=== PATIENT | female | born 1990 | race African-American/Black ===

== ENCOUNTER 2016-09-03 02:03 | Emergency (ER) | payer SELFPAY ==
[~2016-09-03] VITALS: Ht 170.2 cm; Wt 86.0 kg
[~2016-09-03 02:03] MED LIST: MACR100C PO; ZOFR4TAB3 PO
[2016-09-03 02:41] VITALS: BP 127/62; PULSE 82; RESP 16; TEMP 97.6; O2SAT 100
== END 2016-09-03 04:08 | disposition left against medical advice (07) ==
LOC: NED 02:03
DX: R68.89 Other general symptoms and signs (principal)
CPT/HCPCS: 99281

== ENCOUNTER 2016-09-21 10:42 | Emergency (ER) | payer SELFPAY ==
[~2016-09-21] VITALS: Ht 170.2 cm; Wt 82.0 kg
[2016-09-21 10:44] VITALS: BP 122/61; PULSE 77; RESP 14; TEMP 98.1; O2SAT 100
--- NOTE | 2016-09-21 11:03 | PD ---
HPI . left eye crusting, redness, and swelling this morning Chief Complaint: Eye Problems/Injury Time Seen by Provider: 11:03 Travel History International Travel<30 days: No Contact w/Intl Traveler<30days: No Traveled to known affect area: No History of Present Illness HPI 26-year-old female with no past medical history here with complaints of left eye redness, swelling and crusting early this morning. Patient said she woke up and had to remove large amounts of crust and drainage from her left eye. She admits to some discomfort and says that she thinks something may be in there , but is uncertain. 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 She denies any loss of vision today, but suffers from vision impairment and is not wearing any glasses or corrective lenses at this point. PFSH Past Medical History Diminished Hearing: No Headaches: Yes Hypertension: Yes (DURING ) Immunizations Current: Yes ?: Not LMP: 09/11/16 Menopausal: No : 2 Para: 1 : 1 Past Surgical History Section: Yes Gynecologic Surgery: Yes () Social History Alcohol Use: No (DENIES) Tobacco Use: No Substance Use: No Allergies-Medications (Allergen,Severity, Reaction): Coded Allergies: No Known Allergies (Verified , 09/21/16) Reported Meds & Prescriptions Reported Meds & Active Scripts Active Erythromycin Opth Oint 5 Mg/Gm Oint 1 Applic LEFT EYE BID 5 Days Review of Systems General / Constitutional: No: Fever Eyes: Positive: Drainage, Redness, Foreign Body Sensation, Tearing, No: Visual changes HENT: No: Headaches Cardiovascular: No: Chest Pain or Discomfort Respiratory: No: Shortness of Breath Gastrointestinal: No: Abdominal Pain Genitourinary: No: Dysuria Musculoskeletal: No: Pain Skin: No Rash Neurologic: No: Weakness Psychiatric: No: Depression Endocrine: No: Polydipsia Hematologic/Lymphatic: No: Easy Bruising Physical Exam Narrative GENERAL: AAO x 3, no acute distress, Well-nourished, well-developed patient. SKIN: Warm and dry. No visible rashes or bruising. HEAD: Normocephalic and atraumatic. EYES: No scleral icterus. EOM intact, PERRLA. Left eye: No FB visualized. Eye lid everted. + erythema, + injection, no visible drainage. Eye staining negative for corneal abrasion ENT: No nasal drainage noted. Mucous membranes pink. Airway patent. NECK: Supple, trachea midline. No JVD. CARDIOVASCULAR: Regular rate and rhythm without murmurs, gallops, or rubs. RESPIRATORY: Breath sounds equal bilaterally. No accessory muscle use. No rhonchi or rales. GASTROINTESTINAL: visual inspection normal EXTREMITIES: No cyanosis or edema. BACK: Nontender without obvious deformity. No CVA tenderness. PSYCH: AAO x 3, normal affect. Data Data Last Documented VS Vital Signs Date Time Temp Pulse Resp B/P Pulse Ox O2 Delivery O2 Flow Rate FiO2 09/21/16 10:44 98.1 77 14 122/61 100 MDM Medical Decision Making Medical Screen Exam Complete: Yes Emergency Medical Condition: Yes Medical Record Reviewed: Yes Differential Diagnosis bacterial conjunctivitis, less likely corneal abrasion, less likely retinal detachment Narrative Course 26-year-old female with no past medical history here with complaints of left eye redness, swelling and crusting early this morning. Patient said she woke up and had to remove large amounts of crust and drainage from her left eye. She admits to some discomfort and says that she thinks something may be in there , but is uncertain. 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 She denies any loss of vision today, but suffers from vision impairment and is not wearing any glasses or corrective lenses at this point. Patient seen and examined. She appears to have a bacterial conjunctivitis of the left eye. I staining was negative for any corneal abrasion. There was no foreign body found. I will go ahead and prescribe her course of erythromycin ophthalmic ointment. I recommend follow-up with an apiculturist for vision screen and recheck of this eye. I have discussed these recommendations with her. Patient verbalized understanding of instructions, questions were answered, and thanked me for their care. I advised them if their condition worsens, please return to the nearest emergency room for further care. Procedures Procedure Narrative Fluorescein eye staining procedure: left eye proparacaine drops instilled into the left eye Local anesthesia was accomplished. the eye was inspected for any type of obvious foreign body; none found fluorescein stain was applied to look for corneal abrasion: negative Diagnosis Primary Impression: Bacterial conjunctivitis of left eye Referrals: Attraction Attendant Patient Instructions: Conjunctivitis (ED), General Instructions Additional Instructions: Please return to emergency department if your symptoms return or worsen. Follow up with your primary care provider. Take medications as prescribed. Please return to the emergency department for any sudden loss of vision or worsening eye pain. Please see an apiculturist in the next 2-3 days for an eye exam for vision and follow-up of this infection. Med/Other Pt SpecificInfo: Prescription(s) given Scripts Erythromycin Opth Oint 5 Mg/Gm Oint1 Applic LEFT EYE BID 5 Days Ref 0 Prov:Jey Benitez MD 09/21/16 Disposition: 01 DISCHARGE HOME Condition: Stable Karla Cuevas September 21, 2016 11:03
[2016-09-21] MEDS ORDERED: ERYTOIN10 LEFT EYE (11:18)
== END 2016-09-21 11:47 | disposition home or self-care (01) ==
LOC: NEPK 10:42
DX: H10.89 Other conjunctivitis (principal)
CPT/HCPCS: 99283

== ENCOUNTER 2017-04-19 12:38 | Emergency (ER) | payer MEDICAID ==
[~2017-04-19 12:38] MED LIST changes: -MACR100C PO; +PREN1CAP7 PO; -ZOFR4TAB3 PO
--- NOTE | 2017-04-19 13:31 | PD ---
HPI Chief Complaint Water broke Date Seen: Apr 19, 2017 Time Seen: 13:00 Travel History International Travel<30 Days: No Contact w/Intl Traveler<30Days: No Known Affected Area: No History of Present Illness HPI Patient is a 27-year-old at 28/1 weeks gestation who presents to the [facility] the ED with a chief complaint of loss of fluid that happened today at around 12:05 PM while she was at work. Patient states that she went to use the bathroom and she saw a lot of clear liquid on the floor. She had also has been feeling pressure today. 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 No recent sexual intercourse. Her last appointment at [facility] was on Monday 04/16 and a told her that everything was okay except that her baby was large for gestational age and may need to be delivered by section at 39 weeks. She denies any complications during this . Prior to today, she did not have fever or chills, vaginal bleeding, or abnormal vaginal discharge. Her first was full term at 39 weeks, she delivered at [facility] by emergency for failure to progress. History Past Medical History Medical History: Denies Significant Hx Obstetric History Obstetric History Full-term emergency section for failure to progress at 39 weeks at [facility] Past Surgical History Narrative Surgical section Family History Narrative Family History Diabetes and hypertension Social History Alcohol Use: No Tobacco Use: No Substance Abuse: No Allergies-Medications (Allergen,Severity, Reaction): Coded Allergies: No Known Allergies (Verified Adverse Reaction, Unknown, 04/16/17) Home Meds Active Scripts W/O Vit A W/ Fe Fumar (Citranatal [place]) 27-1-260 Mg Cap, 1 CAP PO DAILY for Nutritional Supplement, #30 CAP 10 Refills Prov:Jennifer Jackman YARD MANAGER 03/25/17 Discontinued Scripts Nitrofurantoin Macrocrystal (Nitrofurantoin Macrocrystal) 100 Mg Cap, 100 MG PO QID for Infection for 7 Days, #14 CAP 0 Refills Prov:Indy Rea CNM YARD MANAGER 03/25/17 Metronidazole (Metronidazole) 500 Mg Tab, 500 MG PO BID for Infection, #14 TAB 0 Refills Prov:Ian Lyons MD 03/18/17 Terconazole Vaginal Cream (Terconazole Vaginal Cream) 0.4 % Cream, 1 APPL VAGINAL HS for Fungal Infection for 7 Days, #45 GM 0 Refills For seven days Prov:Ian Lyons MD 03/18/17 Review of Systems Except as stated in HPI: all other systems reviewed are Neg General / Constitutional: No: Fever, Chills Cardiovascular: No: Chest Pain or Discomfort Gastrointestinal: No: Nausea, Vomiting Genitourinary: No: Dysuria Physical Exam Narrative GENERAL: Well-nourished, well-developed patient. SKIN: Warm and dry. HEAD: Normocephalic and atraumatic. EYES: No scleral icterus. No injection or drainage. ENT: No nasal drainage noted. Mucous membranes pink. Airway patent. NECK: Supple, trachea midline. No JVD. CARDIOVASCULAR: Regular rate and rhythm without murmurs, gallops, or rubs. RESPIRATORY: Breath sounds equal bilaterally. No accessory muscle use. ABDOMEN/GI: Abdomen soft, non-tender, bowel sounds present, no rebound, no guarding Gravid abdomen GENITOURINARY: External Genitalia: intact and normal in appearance Cervix: Long, thick, closed Membranes: Intact Uterine Contractions: None FHT's: Category: I , baseline 145, reactive to 150, no decelerations EXTREMITIES: No cyanosis or edema. BACK: Nontender without obvious deformity. No CVA tenderness. NEUROLOGICAL: Awake and alert. Motor and sensory grossly within normal limits. Five out of 5 muscle strength in all muscle groups. Normal speech. Data Data Vital Signs Reviewed: Yes Orders Orders Vital Signs (Adult) .ON ADMISSION (04/19/17 13:05) ^ Labor Status (04/19/17 13:05) ^ Non Stress Test (04/19/17 13:05) ^ Hydration (04/19/17 13:05) MDM Medical Record Reviewed: Yes Interpretation(s) 27-year-old at 28/1 weeks gestation with intact membranes, not ruptured, amnisure negative Plan -Patient is doing well, amnisure negative -FHT category 1, reassuring -Reassuring cervical exam: high, thick, closed -Will discharge home -Patient to follow-up with OB provider within one week Diagnosis Diagnosis: Primary Impression: Intact amniotic membranes during in third trimester Disposition: 01 DISCHARGE HOME Condition: Stable Patient Instructions: Premature Rupture of Membranes (ED), Labor (ED), Early Labor Signs (ED) Additional Instructions: Please follow up with your OB provider within a week. Return to the ED if you experience gush of fluid. kick counts daily. Departure Forms: Tests/Procedures, Work Release Enter return to work date: Apr 22, 2017 Rylie Mac MD R2 Apr 19, 2017 13:31
== END 2017-04-19 14:05 | disposition home or self-care (01) ==
LOC: HOBED 12:38
DX: O42.913 Preterm premature rupture of membranes, unspecified as to length of time between rupture and onset of labor, third trimester (principal); Z3A.28 28 weeks gestation of pregnancy
CPT/HCPCS: 84112; 99284

== ENCOUNTER 2017-06-11 14:40 | Observation (INO) | payer MEDICAID ==
[2017-06-11] VITALS (7 sets, daily range): BP systolic 109–157; BP diastolic 58–90; PULSE 78–90; RESP 16–19; TEMP 98.5–99.4; O2SAT 99–100
[2017-06-11] MEDS ORDERED: SODIUM CHLORIDE 0.9% FLUSH 10 ML FLUSH IVF PRN (15:15)
--- NOTE | 2017-06-11 15:40 | RADRPT ---
EXAM DATE/TIME: 06/11/2017 15:07 [facility] COMPARISON: No previous studies available for comparison. INDICATIONS : Chest pain. MEDICAL HISTORY : Hypertension. SURGICAL HISTORY : None. ENCOUNTER: Initial ACUITY: 1 day PAIN SCORE: 5/10 LOCATION: Bilateral chest FINDINGS: A single view of the chest demonstrates the lungs to be symmetrically aerated without evidence of mas s, infiltrate or effusion. The cardiomediastinal contours are unremarkable. Osseous structures are intact. CONCLUSION: 1. No acute cardiopulmonary disease. Rolando Man MD on June 11, 2017 at 15:37 Board Certified Radiologist. This report was verified electronically.
--- NOTE | 2017-06-11 15:54 | RADRPT ---
EXAM DATE/TIME: 06/11/2017 15:08 [facility] COMPARISON: No previous studies available for comparison. INDICATIONS : Bilateral leg swelling. MEDICAL HISTORY : Hypertension. SURGICAL HISTORY : section. ENCOUNTER: Initial ACUITY: 1 day PAIN SCORE: 2/10 LOCATION: Bilateral legs. TECHNIQUE: Venous ultrasound of the left and right leg was performed from the inguinal ligament to the proximal calf. Real-time, color Doppler and spectral tracing, compression and augmentation techniques were us ed. FINDINGS: RIGHT LEG: There is normal compressibility of the deep venous system from the inguinal region to the proximal ca lf. No echogenic clot is seen in the lumen of the common femoral, femoral, popliteal, and posterior tibial veins. There is a normal response of the venous system to proximal and distal augmentation an d respiration. LEFT LEG: There is normal compressibility of the deep venous system from the inguinal region to the proximal ca lf. No echogenic clot is seen in the lumen of the common femoral, femoral, popliteal, and posterior tibial veins. There is a normal response of the venous system to proximal and distal augmentation an d respiration. CONCLUSION: 1. No DVT identified. Martinez Delacruz MD on June 11, 2017 at 15:50 Board Certified Radiologist. This report was verified electronically.
[2017-06-11 16:01] LABS: PROTHROMBIN TIME - PATIENT 9.7 SEC (9.8-11.6)
[2017-06-11 16:04] LABS: AUTOMATED NEUTROPHIL # 7.4 TH/MM3 (1.8-7.7); BASOPHIL # 0.1 TH/MM3 (0-0.2); BASOPHIL % 0.7 % (0.0-2.0); EOSINOPHIL # 0.1 TH/MM3 (0-0.4); EOSINOPHIL % 0.6 % (0.0-4.0); HEMATOCRIT 33.7 % (35.0-46.0); HEMOGLOBIN 11.4 GM/DL (11.6-15.3); LYMPH % 25.5 % (9.0-44.0); LYMPHOCYTE # 2.8 TH/MM3 (1.0-4.8); MEAN CELL VOLUME 86.6 FL (80.0-100.0); MEAN CORPUSCULAR HEMOGLOBIN 29.2 PG (27.0-34.0); MEAN CORPUSCULAR HGB CONC 33.7 % (32.0-36.0); MEAN PLATELET VOLUME 7.7 FL (7.0-11.0); MONO % 7.2 % (0.0-8.0); MONOCYTE # 0.8 TH/MM3 (0-0.9); PLATELET COUNT 374 TH/MM3 (150-450); RED BLOOD COUNT 3.89 MIL/MM3 (4.00-5.30); RED CELL DISTRIBUTION WIDTH 12.4 % (11.6-17.2); WHITE BLOOD COUNT 11.1 TH/MM3 (4.0-11.0)
[2017-06-11 16:19] LABS: ALBUMIN 2.6 GM/DL (3.4-5.0); ALKALINE PHOSPHATASE 147 U/L (45-117); ALT (GPT) 15 U/L (10-53); AST (GOT) 25 U/L (15-37); BICARBONATE 22.9 MEQ/L (21.0-32.0); BLOOD UREA NITROGEN 2 MG/DL (7-18); CALCIUM 8.6 MG/DL (8.5-10.1); CHLORIDE 104 MEQ/L (98-107); CREATININE 0.54 MG/DL (0.50-1.00); GLOMERULAR FILTRATION RATE 165 ML/MIN (>89); GLUCOSE,RANDOM 89 MG/DL (74-106); LIPASE 116 U/L (73-393); MAGNESIUM 1.7 MG/DL (1.5-2.5); SODIUM (NA) 137 MEQ/L (136-145); TOTAL BILIRUBIN ADULT 0.2 MG/DL (0.2-1.0); TOTAL PROTEIN 7.3 GM/DL (6.4-8.2); TROPONIN I LESS THAN 0.02 NG/ML (0.02-0.05)
--- NOTE | 2017-06-11 16:53 | RADRPT ---
EXAM DATE/TIME: 06/11/2017 15:44 [facility] COMPARISON: CHEST SINGLE AP, June 11, 2017, 15:07. INDICATIONS : Chest pain. 35 weeks . DOSE: 1.1 mCi Tc99m Labeled MAA IV MEDICAL HISTORY : Hypertension. SURGICAL HISTORY : section. ENCOUNTER: Initial ACUITY: 1 day PAIN SCALE: 4/10 LOCATION: chest TECHNIQUE: The patient was injected with MAA, and eight-view perfusion scan was performed. FINDINGS: PERFUSION: There is a homogenous pattern of radiotracer uptake throughout both lungs. CONCLUSION: Normal perfusion scan. Darryl Castro MD on June 11, 2017 at 16:50 Board Certified Radiologist. This report was verified electronically.
--- NOTE | 2017-06-11 17:08 | PD ---
HPI Chief Complaint: Chest Pain Time Seen by Provider: 15:00 Travel History International Travel<30 days: No Contact w/Intl Traveler<30days: No Traveled to known affect area: No History of Present Illness HPI 27-year-old female complains of retrosternal chest pain for about 5 hours. The symptoms started after episodes of nausea and vomiting. She has no fever or cough. No pleuritic component. Timing is constant. Severity is mild to moderate. No exertional component. No radiation. Patient with family history of coronary artery disease. No history of smoking. No personal history of coronary disease [facility] Past Medical History Cardiovascular Problems: Yes (HTN) Diminished Hearing: No Headaches: Yes Hypertension: Yes (DURING ) Immunizations Current: Yes ?: Menopausal: No : 2 Para: 1 : 1 Past Surgical History Section: Yes Gynecologic Surgery: Yes () Social History Alcohol Use: No Tobacco Use: No Substance Use: No Allergies-Medications (Allergen,Severity, Reaction): Coded Allergies: No Known Allergies (Verified Adverse Reaction, Unknown, 06/03/17) Reported Meds & Prescriptions Reported Meds & Active Scripts Active Citranatal [place] ( W/O Vit A W/ Fe Fumar) 27-1-260 Mg Cap 1 Cap PO DAILY Review of Systems Except as stated in HPI: all other systems reviewed are Neg Physical Exam Narrative GENERAL: 27-year-old female pleasant well-nourished well-developed no acute distress SKIN: Warm and dry. HEAD: Atraumatic. Normocephalic. EYES: Pupils equal and round. No scleral icterus. No injection or drainage. ENT: No nasal bleeding or discharge. Mucous membranes pink and moist. NECK: Trachea midline. No JVD. CARDIOVASCULAR: Regular rate and rhythm. RESPIRATORY: No accessory muscle use. Clear to auscultation. Breath sounds equal bilaterally. GASTROINTESTINAL: Abdomen soft, non-tender, nondistended. Hepatic and splenic margins not palpable. MUSCULOSKELETAL: Extremities without clubbing, cyanosis, or edema. No obvious deformities. No sign of DVT NEUROLOGICAL: Awake and alert. No obvious cranial nerve deficits. Motor grossly within normal limits. Five out of 5 muscle strength in the arms and legs. Normal speech. PSYCHIATRIC: Appropriate mood and affect; insight and judgment normal. Data Data Last Documented VS Vital Signs Date Time Temp Pulse Resp B/P (MAP) Pulse Ox O2 Delivery O2 Flow Rate FiO2 06/11/17 17:39 81 18 146/62 (90) 100 Room Air 06/11/17 14:42 99.4 Vital signs reviewed Orders Orders Electrocardiogram (06/11/17 15:01) Ckmb (Isoenzyme) Profile (06/11/17 15:01) Complete Blood Count With Diff (06/11/17 15:01) Comprehensive Metabolic Panel (06/11/17 15:01) Magnesium (Mg) (06/11/17 15:01) Prothrombin Time / Inr (Pt) (06/11/17 15:01) Act Partial Throm Time (Ptt) (06/11/17 15:01) Troponin I (06/11/17 15:01) Lipase (06/11/17 15:01) Chest, Single Ap (06/11/17 15:01) Ecg Monitoring (06/11/17 15:01) Bilateral Bp Monitoring (06/11/17 15:01) Iv Access Insert/Monitor (06/11/17 15:01) Oximetry (06/11/17 15:01) Oxygen Administration (06/11/17 15:01) Sodium Chloride 0.9% Flush (Ns Flush) (06/11/17 15:15) Us Leg Venous Doppler Bilat (06/11/17 ) Lung Scan - Perfusion (06/11/17 15:01) CKMB (06/11/17 15:00) CKMB% (06/11/17 15:00) Ed Discharge Order (06/11/17 18:57) Admit Order (Ed Use Only) (06/11/17 ) Section Cutter / Telemetry AMINTA.Q8H (06/11/17 18:57) Vital Signs (Adult) Q4H (06/11/17 18:57) Diet Heart Healthy (06/11/17 Dinner) Activity Bed Rest (06/11/17 18:57) Activity Oob With Assistance (06/11/17 18:57) Labs Laboratory Tests Test 06/11/17 15:00 White Blood Count 11.1 TH/MM3 Red Blood Count 3.89 MIL/MM3 Hemoglobin 11.4 GM/DL Hematocrit 33.7 % Mean Corpuscular Volume 86.6 FL Mean Corpuscular Hemoglobin 29.2 PG Mean Corpuscular Hemoglobin Concent 33.7 % Red Cell Distribution Width 12.4 % Platelet Count 374 TH/MM3 Mean Platelet Volume 7.7 FL Neutrophils (%) (Auto) 66.0 % Lymphocytes (%) (Auto) 25.5 % Monocytes (%) (Auto) 7.2 % Eosinophils (%) (Auto) 0.6 % Basophils (%) (Auto) 0.7 % Neutrophils # (Auto) 7.4 TH/MM3 Lymphocytes # (Auto) 2.8 TH/MM3 Monocytes # (Auto) 0.8 TH/MM3 Eosinophils # (Auto) 0.1 TH/MM3 Basophils # (Auto) 0.1 TH/MM3 CBC Comment DIFF FINAL Differential Comment Prothrombin Time 9.7 SEC Prothromb Time International Ratio 1.0 RATIO Activated Partial Thromboplast Time 26.3 SEC Blood Urea Nitrogen 2 MG/DL Creatinine 0.54 MG/DL Random Glucose 89 MG/DL Total Protein 7.3 GM/DL Albumin 2.6 GM/DL Calcium Level 8.6 MG/DL Magnesium Level 1.7 MG/DL Alkaline Phosphatase 147 U/L Aspartate Amino Transf (AST/SGOT) 25 U/L Alanine Aminotransferase (ALT/SGPT) 15 U/L Total Bilirubin 0.2 MG/DL Sodium Level 137 MEQ/L Potassium Level 3.6 MEQ/L Chloride Level 104 MEQ/L Carbon Dioxide Level 22.9 MEQ/L Anion Gap 10 MEQ/L Estimat Glomerular Filtration Rate 165 ML/MIN Total Creatine Kinase 145 U/L Creatine Kinase MB 3.1 NG/ML Troponin I LESS THAN 0.02 NG/ML Lipase 116 U/L MDM Medical Decision Making Medical Screen Exam Complete: Yes Emergency Medical Condition: Yes Medical Record Reviewed: Yes Differential Diagnosis NSTEMI, unstable angina, coronary vasospasm, PE, PTX, aortic dissection, pericarditis, myocarditis, endocarditis, PNA, esophageal disease, aneurysm, musculoskeletal etiologies, anxiety, cocaine/sympathomimetic abuse Narrative Course CBC & BMP Diagram 06/11/17 15:00 Total Protein 7.3, Albumin 2.6 L, Calcium Level 8.6, Magnesium Level 1.7, Alkaline Phosphatase 147 H, Aspartate Amino Transf (AST/SGOT) 25, Alanine Aminotransferase (ALT/SGPT) 15, Total Bilirubin 0.2 The troponin is less than 0.02 EKG shows a sinus rhythm with a rate of 76 ST depressions are noted in the inferior leads as well as leads V3 through V6 Last Impressions Lung Scan Nuclear Medicine 06/11/17 1501 Signed Impressions: Service Date/Time: Sunday, June 11, 2017 15:44 - CONCLUSION: Normal perfusion scan. Darryl Castro MD Chest X-Ray 06/11/17 1501 Signed Impressions: Service Date/Time: Sunday, June 11, 2017 15:07 - CONCLUSION: 1. No acute cardiopulmonary disease. Rolando Man MD Lower Extremity Ultrasound 06/11/17 0000 Signed Impressions: Service Date/Time: Sunday, June 11, 2017 15:08 - CONCLUSION: 1. No DVT identified. Martinez Delacruz MD Etiology the chest pain is indeterminate however with EKG changes, having discussed them with Dr. De La Garza of cardiology, admission to the medicine service for serial enzymes and echocardiogram a cardiology consult will be necessary. The case was discussed with OB hospitalist, Dr Duval, who will admit the patient. Critical Care Narrative Diagnosis Primary Impression: Chest pain Qualified Codes: R07.9 - Chest pain, unspecified Additional Impressions: Nonspecific ST-T wave electrocardiographic changes Qualified Codes: Z3A.35 - 35 weeks gestation of Admitting Information Admitting Physician Requests: Admit Martinez De La Garza MD Jun 11, 2017 17:08
--- NOTE | 2017-06-11 19:00 | PD.CONS ---
HPI Travel History International Travel<30 Days: No Contact w/Intl Traveler<30Days: No Known Affected Area: No History of Present Illness HPI patient at work; having "contraction pains" and chestpain. While in ED, patient reports she has having chest pain and contractions. Patient started feeling "contractions" at 9 am followed by chest pain at 10am; patient was also vomiting at 930 Am. Patient is unsure what caused her vomiting as she did not eat that morning. normal bowel movements. No fevers. Normal urination patient is occasionally getting abdominal pai9n; it is not as bad as previously. Patient is feeling cramping q 15 minutes in abdomen and back. chest pain is centrall associated with shortness of breath., Patient reports sweating. pain is not as bad; it is constant but 6/10. shortness of breath is improved; it is when patient is active. patient also reports leg swelling cs 4 years ago- failure to progress at term meds prenatals all none pmh none psh CS FH uncle, grandparents- heart disease; started in 60's SH no smoking, drinking, or drugs chronic headaches, no vision chnages, no more nausea currently, uriantion normal sees [facility] Allergies-Medications (Allergen,Severity, Reaction): Coded Allergies: No Known Allergies (Verified Adverse Reaction, Unknown, 06/03/17) Home Meds Active Scripts W/O Vit A W/ Fe Fumar (Citranatal [place]) 27-1-260 Mg Cap, 1 CAP PO DAILY for Nutritional Supplement, #30 CAP 10 Refills Prov:Jennifer Jackman 03/25/17 Physical Exam Vital Signs Date Time Temp Pulse Resp B/P (MAP) Pulse Ox O2 Delivery O2 Flow Rate FiO2 06/11/17 17:39 81 18 146/62 (90) 100 Room Air 06/11/17 15:04 (99) 99 Room Air 06/11/17 15:04 99 Room Air 06/11/17 15:02 78 19 144/77 (99) 99 Room Air 141/65 (90) 06/11/17 14:55 83 06/11/17 14:42 99.4 90 17 120/60 (80) 99 Narrative GENERAL: Well-nourished, well-developed patient. SKIN: Warm and dry. HEAD: Normocephalic and atraumatic. EYES: No scleral icterus. No injection or drainage. ENT: No nasal drainage noted. Mucous membranes pink. Airway patent. NECK: Supple, trachea midline. No JVD. CARDIOVASCULAR: Regular rate and rhythm without murmurs, gallops, or rubs. RESPIRATORY: Breath sounds equal bilaterally. No accessory muscle use. BREASTS: Bilateral exam showed no masses , no retractions, no nipple discharge. ABDOMEN/GI: Abdomen soft, non-tender, bowel sounds present, no rebound, no guarding Gravid to [-] weeks size Fundal Height: [-] GENITOURINARY: External Genitalia: intact and normal in appearance BUS glands: [-] Cervix: [-] Dilatation: [-] Effacement: [-] Station: [-] Presentation: [-] Membranes: [intact or ruptured] Uterine Contractions: [-] FHT's: Category: [-] Baseline: [-] Reactive: [-] Variability: [-] Decels: [-] EXTREMITIES: No cyanosis or edema. BACK: Nontender without obvious deformity. No CVA tenderness. NEUROLOGICAL: Awake and alert. Motor and sensory grossly within normal limits. Five out of 5 muscle strength in all muscle groups. Normal speech. Data Data Orders Orders Electrocardiogram (06/11/17 15:01) Ckmb (Isoenzyme) Profile (06/11/17 15:01) Complete Blood Count With Diff (06/11/17 15:01) Comprehensive Metabolic Panel (06/11/17 15:01) Magnesium (Mg) (06/11/17 15:01) Prothrombin Time / Inr (Pt) (06/11/17 15:01) Act Partial Throm Time (Ptt) (06/11/17 15:01) Troponin I (06/11/17 15:01) Lipase (06/11/17 15:01) Chest, Single Ap (06/11/17 15:01) Ecg Monitoring (06/11/17 15:01) Bilateral Bp Monitoring (06/11/17 15:01) Iv Access Insert/Monitor (06/11/17 15:01) Oximetry (06/11/17 15:01) Oxygen Administration (06/11/17 15:01) Sodium Chloride 0.9% Flush (Ns Flush) (06/11/17 15:15) Us Leg Venous Doppler Bilat (06/11/17 ) Lung Scan - Perfusion (06/11/17 15:01) CKMB (06/11/17 15:00) CKMB% (06/11/17 15:00) Labs Laboratory Tests Test 06/11/17 15:00 White Blood Count 11.1 Red Blood Count 3.89 Hemoglobin 11.4 Hematocrit 33.7 Mean Corpuscular Volume 86.6 Mean Corpuscular Hemoglobin 29.2 Mean Corpuscular Hemoglobin Concent 33.7 Red Cell Distribution Width 12.4 Platelet Count 374 Mean Platelet Volume 7.7 Neutrophils (%) (Auto) 66.0 Lymphocytes (%) (Auto) 25.5 Monocytes (%) (Auto) 7.2 Eosinophils (%) (Auto) 0.6 Basophils (%) (Auto) 0.7 Neutrophils # (Auto) 7.4 Lymphocytes # (Auto) 2.8 Monocytes # (Auto) 0.8 Eosinophils # (Auto) 0.1 Basophils # (Auto) 0.1 CBC Comment DIFF FINAL Differential Comment Prothrombin Time 9.7 Prothromb Time International Ratio 1.0 Activated Partial Thromboplast Time 26.3 Blood Urea Nitrogen 2 Creatinine 0.54 Random Glucose 89 Total Protein 7.3 Albumin 2.6 Calcium Level 8.6 Magnesium Level 1.7 Alkaline Phosphatase 147 Aspartate Amino Transf (AST/SGOT) 25 Alanine Aminotransferase (ALT/SGPT) 15 Total Bilirubin 0.2 Sodium Level 137 Potassium Level 3.6 Chloride Level 104 Carbon Dioxide Level 22.9 Anion Gap 10 Estimat Glomerular Filtration Rate 165 Total Creatine Kinase 145 Creatine Kinase MB 3.1 Troponin I LESS THAN 0.02 Lipase 116 Deepak Harris MD, R3 Jun 11, 2017 19:00
--- NOTE | 2017-06-11 19:40 | HHI.HP ---
HPI Chief Complaint chest pain Date Seen: Jun 11, 2017 Travel History International Travel<30 Days: No Contact w/Intl Traveler<30Days: No Known Affected Area: No History of Present Illness HPI Ms. Palumbo is a 27 yo at 35 5/7 weeks (MALENA 07/11/2017) patient of [facility] who presents to [facility] complaining of chest pain and intermittent abdominal pain. Patient states that she began feeling abdominal pain this morning while at work at ~9am; patient states that these were ~q15 min apart and of moderate severity. Patient states that this pain also radiated to her back. At ~930AM, patient began vomiting multiple times. At ~10AM, patient began having chest pain which is sternal. Patient also has reported increased shortness of breath today, and states that she has had increased bilateral leg swelling. Patient also reports increased sweating today. Patient has not experienced chest pain, abdominal pain, or vomiting prior today ; she no longer feels nauseous. Patient states she has not eaten today and would like to eat. No fevers. Normal bowel movements. Normal urination. Chronic headaches, no recent changes or vision changes. Patient does not report any vaginal bleeding or loss of vaginal fluid; she has normal movement. Since arriving in OB ED, patient states that her chest pain is persistent. Patient reports that her pain is 6/10 in severity. She feels that her shortness of breath is improved. Her abdominal pain is q15 minutes and not as severe as previously patient is occasionally getting abdominal pai9n; it is not as bad as previously. Patient is feeling cramping q 15 minutes in abdomen and back. records reviewed: Patient had trichomonas early in with subsequent negative ALVERTO. labs unremarkable. 03/18 US with MALENA 07/09/2016 Interval History: Patient evaluated in ED; EKG with some T inversion in lateral leads; no prior EKG for comparison. Troponin wnl. VQ wnl. CXR wnl. LE US doppler wnl. CBC, CMP wnl. Patient admitted for further cardiac work-up and Obstetric evaluation Weeks Gestation: 35 Para: 1 : 2 History Obstetric History Obstetric History cs 4 years ago for failure to progress at term Past Surgical History Narrative Surgical CS x1 Family History Narrative Family History uncle, grandparents- heart disease; started in 60's Social History Narrative Social History no smoking, drinking, or drugs per patient Alcohol Use: No Tobacco Use: No Substance Abuse: No Allergies-Medications (Allergen,Severity, Reaction): Coded Allergies: No Known Allergies (Verified Adverse Reaction, Unknown, 06/03/17) Home Meds Active Scripts W/O Vit A W/ Fe Fumar (Citranatal [place]) 27-1-260 Mg Cap, 1 CAP PO DAILY for Nutritional Supplement, #30 CAP 10 Refills Prov:Jennifer Jackman 03/25/17 Review of Systems General / Constitutional: No: Fever Eyes: No: Blurred Vision HENT: Headaches (chronic ) Cardiovascular: Chest Pain or Discomfort Respiratory: Short of Breath Gastrointestinal: Abdominal Pain (q 15 minutes ) Genitourinary: No: Urgency, Dysuria Skin: No Rash, No Itching Neurologic: No: Weakness, Dizziness Psychiatric: No: Anxiety, Depression Physical Exam Vital Signs Date Time Temp Pulse Resp B/P (MAP) Pulse Ox O2 Delivery O2 Flow Rate FiO2 06/11/17 19:25 83 18 122/66 (84) 100 Room Air 06/11/17 17:39 81 18 146/62 (90) 100 Room Air 06/11/17 15:04 (99) 99 Room Air 06/11/17 15:04 99 Room Air 06/11/17 15:02 78 19 144/77 (99) 99 Room Air 141/65 (90) 06/11/17 14:55 83 06/11/17 14:42 99.4 90 17 120/60 (80) 99 Narrative GENERAL: Well-nourished, well-developed patient. SKIN: Warm and dry. HEAD: Normocephalic and atraumatic. EYES: No scleral icterus. No injection or drainage. ENT: No nasal drainage noted. Mucous membranes pink. Airway patent. CARDIOVASCULAR: Regular rate and rhythm without murmurs. No LE edema appreciated RESPIRATORY: CTAB; normal rate ABDOMEN/GI: Abdomen soft, non-tender, bowel sounds present, no rebound, no guarding Gravid EXTREMITIES: No cyanosis or edema. NEUROLOGICAL: Awake and alert. Motor and sensory function grossly within normal limits. GENITOURINARY: External Genitalia: intact and normal in appearance Cervix: Dilatation: closed Effacement: thick Station: -3 Membranes: Intact Uterine Contractions: None palpated Caprini VTE Risk Assessment Caprini VTE Risk Assessment: No/Low Risk (score <= 1) Caprini Risk Assessment Model Point Value = 1 Point Value = 2 Point Value = 3 Point Value = 5 Age 41-60 Minor surgery BMI > 25 kg/m2 Swollen legs Varicose veins or History of unexplained or recurrent spontaneous Oral contraceptives or hormone replacement Sepsis (< 1 month) Serious lung disease, including pneumonia (< 1 month) Abnormal pulmonary function Acute myocardial infarction Congestive heart failure (< 1 month) History of inflammatory bowel disease Medical patient at bed rest Age 61-74 Arthroscopic surgery Major open surgery (> 45 min) Laparoscopic surgery (> 45 min) Malignancy Confined to bed (> 72 hours) Immobilizing plaster cast Central venous access Age >= 75 History of VTE Family history of VTE Factor V Leiden Prothrombin [id number] Lupus anticoagulant Anticardiolipin antibodies Elevated serum homocysteine Heparin-induced thrombocytopenia Other congenital or acquired thrombophilia Stroke (< 1 month) Elective arthroplasty Hip, pelvis, or leg fracture Acute spinal cord injury (< 1 month) Prophylaxis Regimen Total Risk Factor Score Risk Level Prophylaxis Regimen 0-1 Low Early ambulation 2 Moderate Order ONE of the following: *Sequential Compression Device (SCD) *Heparin 5000 units SQ BID 3-4 Higher Order ONE of the following medications: *Heparin 5000 units SQ TID *Enoxaparin/Lovenox 40 mg SQ daily (WT < 150 kg, CrCl > 30 mL/min) *Enoxaparin/Lovenox 30 mg SQ daily (WT < 150 kg, CrCl > 10-29 mL/min) *Enoxaparin/Lovenox 30 mg SQ BID (WT < 150 kg, CrCl > 30 mL/min) AND/OR *Sequential Compression Device (SCD) 5 or more Highest Order ONE of the following medications: *Heparin 5000 units SQ TID (Preferred with Epidurals) *Enoxaparin/Lovenox 40 mg SQ daily (WT < 150 kg, CrCl > 30 mL/min) *Enoxaparin/Lovenox 30 mg SQ daily (WT < 150 kg, CrCl > 10-29 mL/min) *Enoxaparin/Lovenox 30 mg SQ BID (WT < 150 kg, CrCl > 30 mL/min) AND *Sequential Compression Device (SCD) Data Data Vital Signs Reviewed: Yes Orders Orders Electrocardiogram (06/11/17 15:01) Ckmb (Isoenzyme) Profile (06/11/17 15:01) Complete Blood Count With Diff (06/11/17 15:01) Comprehensive Metabolic Panel (06/11/17 15:01) Magnesium (Mg) (06/11/17 15:01) Prothrombin Time / Inr (Pt) (06/11/17 15:01) Act Partial Throm Time (Ptt) (06/11/17 15:01) Troponin I (06/11/17 15:01) Lipase (06/11/17 15:01) Chest, Single Ap (06/11/17 15:01) Ecg Monitoring (06/11/17 15:01) Bilateral Bp Monitoring (06/11/17 15:01) Iv Access Insert/Monitor (06/11/17 15:01) Oximetry (06/11/17 15:01) Oxygen Administration (06/11/17 15:01) Sodium Chloride 0.9% Flush (Ns Flush) (06/11/17 15:15) Us Leg Venous Doppler Bilat (06/11/17 ) Lung Scan - Perfusion (06/11/17 15:01) CKMB (06/11/17 15:00) CKMB% (06/11/17 15:00) Ed Discharge Order (06/11/17 18:57) Admit Order (Ed Use Only) (06/11/17 ) Buckle Wire Inserter / Telemetry AMINTA.Q8H (06/11/17 18:57) Vital Signs (Adult) Q4H (06/11/17 18:57) Diet Heart Healthy (06/11/17 Dinner) Activity Bed Rest (06/11/17 18:57) Activity Oob With Assistance (06/11/17 18:57) Consult Cardiology (06/11/17 ) Physician Name Changes (06/11/17 19:09) Admit To Inpatient (06/11/17 ) Diet Heart Healthy (06/12/17 Breakfast) Heart RT.Q12H (06/11/17 19:23) Uric Acid (06/11/17 19:23) Urinalysis - C+S If Indicated (06/11/17 19:23) Acetaminophen (Tylenol) (06/11/17 19:30) Sodium Chloride 0.9% Flush (Ns Flush) (06/11/17 21:00) Sodium Chloride 0.9% Flush (Ns Flush) (06/11/17 19:30) Ondansetron Odt (Zofran Odt) (06/11/17 19:30) Inpatient Certification (06/11/17 ) Specimen To Be Collected PRN (06/11/17 19:23) Protein Creat Ratio, Random Ur (06/11/17 19:23) Ob/Psych Drug Screen, Urine (06/11/17 19:23) Activity Oob With Assistance (06/11/17 19:23) Buckle Wire Inserter / Telemetry .CONTINUOUS (06/11/17 19:23) Sodium Chlor 0.9% 1000 Ml Inj (Ns 1000 M (06/11/17 19:23) Basic Metabolic Panel (Bmp) (06/12/17 06:00) Complete Blood Count With Diff (06/12/17 06:00) Troponin I (06/11/17 21:00) Troponin I (06/12/17 03:00) Electrocardiogram (06/11/17 21:00) Electrocardiogram (06/12/17 03:00) Labs Laboratory Tests Test 06/11/17 15:00 White Blood Count 11.1 Red Blood Count 3.89 Hemoglobin 11.4 Hematocrit 33.7 Mean Corpuscular Volume 86.6 Mean Corpuscular Hemoglobin 29.2 Mean Corpuscular Hemoglobin Concent 33.7 Red Cell Distribution Width 12.4 Platelet Count 374 Mean Platelet Volume 7.7 Neutrophils (%) (Auto) 66.0 Lymphocytes (%) (Auto) 25.5 Monocytes (%) (Auto) 7.2 Eosinophils (%) (Auto) 0.6 Basophils (%) (Auto) 0.7 Neutrophils # (Auto) 7.4 Lymphocytes # (Auto) 2.8 Monocytes # (Auto) 0.8 Eosinophils # (Auto) 0.1 Basophils # (Auto) 0.1 CBC Comment DIFF FINAL Differential Comment Prothrombin Time 9.7 Prothromb Time International Ratio 1.0 Activated Partial Thromboplast Time 26.3 Blood Urea Nitrogen 2 Creatinine 0.54 Random Glucose 89 Total Protein 7.3 Albumin 2.6 Calcium Level 8.6 Magnesium Level 1.7 Alkaline Phosphatase 147 Aspartate Amino Transf (AST/SGOT) 25 Alanine Aminotransferase (ALT/SGPT) 15 Total Bilirubin 0.2 Sodium Level 137 Potassium Level 3.6 Chloride Level 104 Carbon Dioxide Level 22.9 Anion Gap 10 Estimat Glomerular Filtration Rate 165 Total Creatine Kinase 145 Creatine Kinase MB 3.1 Troponin I LESS THAN 0.02 Lipase 116 Assessment/Plan Problem List: (1) ICD Codes: Z34.90 - Encounter for supervision of normal , unspecified , unspecified trimester Status: Acute Qualifiers: Qualified Codes: Z3A.35 - 35 weeks gestation of (2) Chest pain ICD Codes: R07.9 - Chest pain, unspecified Status: Acute Qualifiers: Qualified Codes: R07.9 - Chest pain, unspecified Assessment and Plan Ms. Palumbo is a 27 yo at 35 5/7 weeks (MALENA 07/11/2017) patient of [facility] who presents to [facility] ED complaining of chest pain and intermittent abdominal pain. Chest pain: Impression: EKG with lateral T wave inversions. Troponin wnl. Patient's history suggestive of possible post-vomiting induced chest pain. Some FH CAD but not overt. Patient's reported SOB and LE edema are not associated with tachypnea or obvious edema on exam. Associated SOB but VQ and LE doppler US negative; CXR also negative and normal HR and O2 sat currently. -Cardiology consulted -Will monitor on telemetry -Will obtain Echo -Will check UDS -Will continue ACS rule-out -EKG's at 2100 06/11, 0300 06/12 -Troponin at 2100 06/11, 0300 24 BP elevation Impression: SBP in 140's today. CMP and CBC wnl. Suspect from pain/anxiety -Will check UA, urine protein/Cr ratio, uric acid Vomiting Impression: No nausea currently -Will give PRN Zofran IUP Impression: 35 5/7 weeks GA. Cervix closed. Not having obvious contractions; not in labor. Normal FM. Prior CS -Will obtain BID NST's -Patient will notify nursing staff with any regular abdominal pain q 5minutes -Will give hydration overnight with NS -Since patient has not had a formal US in EMR, will plan to obtain Deepak Harris MD, R3 Jun 11, 2017 19:40
[2017-06-11] MEDS ORDERED: ACETAMINOPHEN 325 MG TAB PO PRN (19:45)
[2017-06-11] MEDS ORDERED: ONDANSETRON ODT 4 MG TAB PO PRN (19:45)
[2017-06-11] MEDS ORDERED: SODIUM CHLORIDE 0.9% FLUSH 10 ML FLUSH IV FLUSH PRN (19:45)
[2017-06-11] MEDS ORDERED: NALOXONE HCL 0.4 MG/ML AMP IV PUSH PRN (20:45)
--- NOTE | 2017-06-11 21:30 | EKG ---
Date Performed: 06/11/2017 Time Performed: 14:55:48 PTAGE: 27 years EKG: Sinus rhythm ST DEVIATION AND MODERATE T-WAVE ABNORMALITY ABNORMAL ECG NO PREVIOUS TRACING DOCTOR: Phillip Rosales Interpretating Date/Time 06/11/2017 21:28:33
[2017-06-11 21:41] LABS: AMORPHOUS SEDIMENT, URINE RARE; BACTERIA, URINE OCC /hpf; BILIRUBIN, URINE NEG (NEG); BLOOD, URINE NEG (NEG); GLUCOSE,URINE NEG (NEG); KETONE, URINE NEG (NEG); NITRITE,URINE NEG (NEG); PH, URINE 5.5 (5.0-8.5); SQUAMOUS EPITHELIAL CELL URINE 1 /hpf (0-5); URINE COLOR LIGHT-YELLOW (YELLW/STRAW); URINE LEUKOCYTE ESTERASE NEG (NEG)
[2017-06-11] MEDS: SODIUM CHLOR 0.9% 1000 ML INJ 1,000 ML IV SCH (21:49)
[2017-06-11] MEDS: SODIUM CHLORIDE 0.9% FLUSH 10 ML FLUSH IV FLUSH SCH (21:50)
[2017-06-11 22:41] LABS: TROPONIN I LESS THAN 0.02 NG/ML (0.02-0.05)
[2017-06-12] VITALS (9 sets, daily range): BP systolic 104–129; BP diastolic 49–74; PULSE 57–83; RESP 16–18; TEMP 97.9–98.4; O2SAT 100
[2017-06-12 03:42] LABS: BASOPHIL % 0.4 % (0.0-2.0); EOSINOPHIL # 0.1 TH/MM3 (0-0.4); EOSINOPHIL % 0.5 % (0.0-4.0); HEMATOCRIT 33.5 % (35.0-46.0); HEMOGLOBIN 11.3 GM/DL (11.6-15.3); LYMPH % 26.7 % (9.0-44.0); LYMPHOCYTE # 2.9 TH/MM3 (1.0-4.8); MEAN CELL VOLUME 86.8 FL (80.0-100.0); MEAN CORPUSCULAR HEMOGLOBIN 29.2 PG (27.0-34.0); MEAN CORPUSCULAR HGB CONC 33.6 % (32.0-36.0); MEAN PLATELET VOLUME 6.7 FL (7.0-11.0); MONO % 7.5 % (0.0-8.0); MONOCYTE # 0.8 TH/MM3 (0-0.9); NEUT % 64.9 % (16.0-70.0); PLATELET COUNT 351 TH/MM3 (150-450); RED BLOOD COUNT 3.86 MIL/MM3 (4.00-5.30); RED CELL DISTRIBUTION WIDTH 12.8 % (11.6-17.2); WHITE BLOOD COUNT 10.8 TH/MM3 (4.0-11.0)
[2017-06-12 04:15] LABS: BICARBONATE 25.7 MEQ/L (21.0-32.0); CALCIUM 8.8 MG/DL (8.5-10.1); CREATININE 0.49 MG/DL (0.50-1.00)
[2017-06-12] MEDS: SODIUM CHLOR 0.9% 1000 ML INJ 1,000 ML IV SCH (08:10)
[2017-06-12] MEDS: SODIUM CHLORIDE 0.9% FLUSH 10 ML FLUSH IV FLUSH SCH (08:15)
--- NOTE | 2017-06-12 09:01 | MB ---
cc: AHMET VAZQUEZ M.D. DATE OF CONSULTATION 06/12/2017 REASON FOR CONSULTATION Evaluation of chest pain. HISTORY OF PRESENT ILLNESS This is a 27-year-old -[place] female who is 35 weeks . She was at work and got some abdominal cramps and then she vomited four times. She vomited clear fluid because she had not had breakfast. Following vomiting she had sweating, chest pain and difficulty breathing. The chest pain is described as a pressure and sharp pain in the center of her chest, graded as 7.5/10. This was about 9 o'clock in the morning. She finally came in, in the early afternoon and her pain resolved last night at about 11:00 p.m. Of note, she has ST-T wave changes on her EKG. Blood pressure was high as 157/90 at 22:10 last night; blood pressure is down this morning. She denies any previous hypertension. Denies any previous chest pain. She is a non-smoker. PAST MEDICAL HISTORY Otherwise unremarkable. SOCIAL HISTORY Non-smoker, non-drinker. FAMILY HISTORY Negative for heart disease in her parents and siblings. MEDICATIONS No cardiac medications prior to admission. She takes vitamins. PHYSICAL EXAMINATION GENERAL: A pleasant -L[place]ian female in no acute distress. VITAL SIGNS: Vital signs are charted. As mentioned she had that one markedly elevated reading last night. HEENT: Exam unremarkable. NECK: No JVD. CHEST: Clear to auscultation. CARDIAC: S1, S2, regular rate and rhythm, 1/6 systolic ejection murmur. ABDOMEN: Gravid. EXTREMITIES: No clubbing, cyanosis or edema. Pulses are intact. EKG EKG shows sinus rhythm. There is diffuse nonspecific ST-T wave changes in a strain-type pattern, similar on prior tracings. LABORATORY Troponin has been checked three times and is normal. Creatinine is 0.49. IMAGING Chest x-ray showed no acute disease. Venous Doppler studies showed no DVT. Ventilation/perfusion scan was negative for pulmonary emboli. IMPRESSION Prolonged episode of chest pain yesterday. No troponin evidence of any ischemic event. I am concerned about her blood pressure being elevated and the risk of preeclampsia. 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 At this point her chest pain is resolved. The ST-T wave changes could be secondary to previous hypertension. A 2-D echo Doppler study is pending to evaluate LV function and LV wall thickness. I do not suspect a coronary dissection or other ischemic etiology with negative troponins despite prolonged pain. Further therapy to be determined. MD JOSEFINA Powell/MIHAELA /8:40 AM /8:46 AM
--- NOTE | 2017-06-12 10:10 | PD.OB.ANTE ---
Subjective Diagnosis: (1) Chest pain Diagnosis: Principal (2) 35 weeks gestation of Diagnosis: Principal Interval History Ms. Palumbo was afebrile with stable BP overnight. Patient does not report any residual chest pain or abdominal pain today. Patient also does not report any shortness of breath. No other complaints reported today. Objective Vital Signs Vital Signs Date Time Temp Pulse Resp B/P (MAP) Pulse Ox O2 Delivery O2 Flow Rate FiO2 06/12/17 08:07 97.9 74 18 120/74 (89) 100 06/12/17 04:00 98.2 62 16 110/52 (71) 100 06/12/17 00:00 63 06/12/17 00:00 98.4 74 16 104/49 (67) 100 06/11/17 22:10 98.5 79 16 157/90 (112) 100 06/11/17 21:00 88 16 109/58 (75) 100 Room Air 06/11/17 19:25 83 18 122/66 (84) 100 Room Air 06/11/17 17:39 81 18 146/62 (90) 100 Room Air 06/11/17 15:04 (99) 99 Room Air 06/11/17 15:04 99 Room Air 06/11/17 15:02 78 19 144/77 (99) 99 Room Air 141/65 (90) 06/11/17 14:55 83 06/11/17 14:42 99.4 90 17 120/60 (80) 99 Intake & Output 06/12/17 06/12/17 07:00 19:00 Intake Total 1680 ml Output Total 1900 ml Balance -220 ml Intake Oral 1680 ml Output Urine Total 1900 ml # Voids 2 # Bowel Movements 0 Lab & Micro Results Test 06/11/17 15:00 06/11/17 19:20 06/11/17 21:40 06/12/17 03:33 White Blood Count 11.1 TH/MM3 10.8 TH/MM3 Red Blood Count 3.89 MIL/MM3 3.86 MIL/MM3 Hemoglobin 11.4 GM/DL 11.3 GM/DL Hematocrit 33.7 % 33.5 % Mean Corpuscular Volume 86.6 FL 86.8 FL Mean Corpuscular Hemoglobin 29.2 PG 29.2 PG Mean Corpuscular Hemoglobin Concent 33.7 % 33.6 % Red Cell Distribution Width 12.4 % 12.8 % Platelet Count 374 TH/MM3 351 TH/MM3 Mean Platelet Volume 7.7 FL 6.7 FL Neutrophils (%) (Auto) 66.0 % 64.9 % Lymphocytes (%) (Auto) 25.5 % 26.7 % Monocytes (%) (Auto) 7.2 % 7.5 % Eosinophils (%) (Auto) 0.6 % 0.5 % Basophils (%) (Auto) 0.7 % 0.4 % Neutrophils # (Auto) 7.4 TH/MM3 7.0 TH/MM3 Lymphocytes # (Auto) 2.8 TH/MM3 2.9 TH/MM3 Monocytes # (Auto) 0.8 TH/MM3 0.8 TH/MM3 Eosinophils # (Auto) 0.1 TH/MM3 0.1 TH/MM3 Basophils # (Auto) 0.1 TH/MM3 0.0 TH/MM3 CBC Comment DIFF FINAL DIFF FINAL Differential Comment Prothrombin Time 9.7 SEC Prothromb Time International Ratio 1.0 RATIO Activated Partial Thromboplast Time 26.3 SEC Blood Urea Nitrogen 2 MG/DL 4 MG/DL Creatinine 0.54 MG/DL 0.49 MG/DL Random Glucose 89 MG/DL 112 MG/DL Total Protein 7.3 GM/DL Albumin 2.6 GM/DL Calcium Level 8.6 MG/DL 8.8 MG/DL Magnesium Level 1.7 MG/DL Alkaline Phosphatase 147 U/L Aspartate Amino Transf (AST/SGOT) 25 U/L Alanine Aminotransferase (ALT/SGPT) 15 U/L Total Bilirubin 0.2 MG/DL Sodium Level 137 MEQ/L 141 MEQ/L Potassium Level 3.6 MEQ/L 3.4 MEQ/L Chloride Level 104 MEQ/L 107 MEQ/L Carbon Dioxide Level 22.9 MEQ/L 25.7 MEQ/L Anion Gap 10 MEQ/L 8 MEQ/L Estimat Glomerular Filtration Rate 165 ML/MIN 185 ML/MIN Total Creatine Kinase 145 U/L Creatine Kinase MB 3.1 NG/ML Troponin I LESS THAN 0.02 NG/ML LESS THAN 0.02 NG/ML LESS THAN 0.02 NG/ML Lipase 116 U/L Urine Color LIGHT-YELLOW Urine Turbidity CLEAR Urine pH 5.5 Urine Specific [place] 1.003 Urine Protein NEG mg/dL Urine Glucose (UA) NEG mg/dL Urine Ketones NEG mg/dL Urine Occult Blood NEG Urine Nitrite NEG Urine Bilirubin NEG Urine Urobilinogen LESS THAN 2.0 MG/DL Urine Leukocyte Esterase NEG Urine RBC 1 /hpf Urine WBC 1 /hpf Urine Squamous Epithelial Cells 1 /hpf Urine Amorphous Sediment RARE Urine Bacteria OCC /hpf Microscopic Urinalysis Comment CULT NOT INDICATED Urine Random Creatinine 17 MG/DL Urine Random Total Protein LESS THAN 5 MG/DL Urine Protein/Creatinine Ratio 0.29 Urine Opiates Screen NEG Urine Barbiturates Screen NEG Urine Amphetamines Screen NEG Urine Benzodiazepines Screen NEG Urine Cocaine Screen NEG Urine Cannabinoids Screen NEG Uric Acid 5.2 MG/DL Physical Exam GENERAL: Well-nourished, well-developed patient. SKIN: Warm and dry. EYES: No scleral icterus. No injection or drainage. CARDIOVASCULAR: Regular rate and rhythm without murmurs. No LE edema appreciated RESPIRATORY: CTAB; normal rate ABDOMEN/GI: Abdomen soft, non-tender, bowel sounds present, no rebound, no guarding Gravid EXTREMITIES: No cyanosis or edema. NEUROLOGICAL: Awake and alert. Motor and sensory function grossly within normal limits. GENITOURINARY: Performed 06/11- Closed, thick, posterior Assessment and Plan Problem List: (1) ICD Codes: Z34.90 - Encounter for supervision of normal , unspecified , unspecified trimester Status: Acute Qualifiers: Qualified Codes: Z3A.35 - 35 weeks gestation of (2) Chest pain ICD Codes: R07.9 - Chest pain, unspecified Status: Acute Qualifiers: Qualified Codes: R07.9 - Chest pain, unspecified Assessment and Plan Ms. Palumbo is a 27 yo at 35 6/7 weeks (MALENA 07/11/2017) patient of [facility] who presented to [facility] ED complaining of chest pain and intermittent abdominal pain. Chest pain: Impression: EKG with lateral T wave inversions. Troponin wnl. Patient's history suggestive of possible post-vomiting induced chest pain. Some FH CAD but not overt. Patient's reported SOB and LE edema are not associated with tachypnea or obvious edema on exam. Associated SOB but VQ and LE doppler US negative; CXR also negative and normal HR and O2 sat currently. UDS negative ACS rule-out negative -Cardiology consulted -Will monitor on telemetry -Will obtain Echo BP elevation Impression: SBP in 140's 06/11. CMP and CBC wnl. Urine protein/Cr ratio 0.29. Uric acid wnl. UA w/o protein. Suspect transient HTN from pain/anxiety -Continue to monitor BP while hospitalized Vomiting Impression: No nausea currently -Will give PRN Zofran IUP Impression: 35 6/7 weeks GA. Cervix closed. Not having obvious contractions; not in labor. Normal FM. Prior CS -Will obtain BID NST's -Patient will notify nursing staff with any regular abdominal pain q 5minutes -Will give hydration overnight with NS -Since patient has not had a formal US in EMR, will plan to obtain Deepak Harris MD, R3 Jun 12, 2017 10:10
--- NOTE | 2017-06-12 10:34 | HHI.PR ---
Addendum to Inpatient Note Addendum Reason: Additional Documentation Additional Information Echo notable for mild left ventricular hypertrophy - remainder of study is nl. LVH adequately explains why her EKG has ST-T wave changes. Chest pain has resolved. I will dere to OB re: management of her HTN. Arik Perez MD Jun 12, 2017 10:34
--- NOTE | 2017-06-12 10:58 | ECHRPT ---
Indication: CHEST PAIN, 35 WEEKS CONCLUSIONS Normal left ventricular size. Mild concentric left ventricular hypertrophy. The left atrial size is normal. [id number]-utfo mitral valve regurgitation. There is trace tricuspid valve regurgitation. BP: 120 / 74 HR: Rhythm: Sinus MEASUREMENTS (Male / Female) Normal Values Technical Quality:Fair 2D ECHO LV Diastolic Diameter PLAX 4.9 cm 4.2 - 5.9 / 3.9 - 5.3 cm LV Systolic Diameter PLAX 3.4 cm IVS Diastolic Thickness 1.2 cm 0.6 - 1.0 / 0.6 - 0.9 cm LVPW Diastolic Thickness 1.2 cm 0.6 - 1.0 / 0.6 - 0.9 cm LV Relative Wall Thickness 0.5 RV Internal Dim ED PLAX 2.1 cm LVOT Diameter 1.8 cm Aortic Root Diameter 3.1 cm LA Systolic Diameter LX 3.2 cm 3.0 - 4.0 / 2.7 - 3.8 cm M-MODE AV Cusp Separation MM 2.0 cm DOPPLER AV Peak Velocity 121.0 cm/s AV Peak Gradient 5.9 mmHg AV Mean Gradient 3.0 mmHg AV Velocity Time Integral 23.7 cm LVOT Peak Velocity 99.3 cm/s LVOT Peak Gradient 3.9 mmHg LVOT Velocity Time Integral 18.4 cm AV Area Cont Eq vti 2.0 cm AV Area Cont Eq pk 2.1 cm Mitral E Point Velocity 73.1 cm/s Mitral A Point Velocity 47.4 cm/s Mitral E to A Ratio 1.5 LV E' Lateral Velocity 9.8 cm/s Mitral E to LV E' Lateral Ratio 7.5 LV E' Septal Velocity 8.8 cm/s Mitral E to LV E' Septal Ratio 8.3 PV Peak Velocity 97.0 cm/s PV Peak Gradient 3.8 mmHg FINDINGS LEFT VENTRICLE Normal left ventricular size. Mild concentric left ventricular hypertrophy. The left ventricular systolic function is normal with an estimated ejection fraction in the range of 60-65%. RIGHT VENTRICLE Normal right ventricular size and systolic function. LEFT ATRIUM The left atrial size is normal RIGHT ATRIUM The right atrial size is normal. ATRIAL SEPTUM No atrial level shunt is demonstrated by color flow Doppler interrogation. AORTA The aortic root and proximal ascending aorta are normal in size on limited imaging. MITRAL VALVE Hauxd-lz-ufge mitral valve regurgitation. AORTIC VALVE Trileaflet aortic valve. No aortic valve stenosis or regurgitation. TRICUSPID VALVE There is trace tricuspid valve regurgitation. PULMONARY VALVE No pulmonary valve regurgitation or stenosis. VESSELS The inferior vena cava was not well visualized. PERICARDIUM No pericardial effusion. Arik Perez MD (Electronically Signed) Final Date:12 June 2017 10:57
--- NOTE | 2017-06-12 12:06 | EKG ---
Date Performed: 06/12/2017 Time Performed: 03:23:32 PTAGE: 27 years EKG: Sinus bradycardia Extensive ST-T changes are abnormal Abnormal ECG PREVIOUS TRACING : 06/11/2017 21.46 Since the prior tracing, there has been no significant landa DOCTOR: Phillip Rosales Interpretating Date/Time 06/12/2017 12:05:24
--- NOTE | 2017-06-12 12:15 | EKG ---
Date Performed: 06/11/2017 Time Performed: 21:46:15 PTAGE: 27 years EKG: Sinus rhythm ST DEVIATION AND MODERATE T-WAVE ABNORMALITY ABNORMAL ECG PREVIOUS TRACING : 06/11/2017 14.55 Since the prior tracing, there has been no significant landa DOCTOR: Phillip Rosales Interpretating Date/Time 06/12/2017 12:15:06
[2017-06-12] MEDS ORDERED: POTASSIUM CHLORIDE 10 MEQ CONTROLLED RELEASE TAB PO ONE (14:30)
--- NOTE | 2017-06-12 15:34 | HHI.DCPOC ---
Discharge Care Plan Diagnosis: (1) Chest pain (2) 35 weeks gestation of Report Symptoms to Your Doctor -Temperature above 100.5 degrees -Redness, of incision or excessive or foul smelling drainage -Unusual pain or calf pain -Increased vaginal bleeding -Painful or difficulty urinating -Feelings of extreme sadness or anxiety after 2 weeks Goals to Promote Your Health * To prevent worsening of your condition and complications * To maintain your health at the optimal level Directions to Meet Your Goals Take your medications as prescribed Follow your dietary instruction Follow activity as directed Ensure plenty of rest for recovery Drink fluids for hydration Keep your appointments as scheduled Take your immunizations and boosters as scheduled If your symptoms worsen call your PCP, if no PCP go to Urgent Care Center or Emergency Room Smoking is Dangerous to Your Health. Avoid second hand smoke Call the 24-hour crisis hotline for domestic abuse at Deepak Harris MD, R3 Jun 12, 2017 15:34
--- NOTE | 2017-06-12 15:58 | HHI.PR ---
Addendum to Inpatient Note Addendum Reason: Additional Documentation Additional Information Discussed echo findings and reassuring US findings with patient. Patient will follow-up with [facility] 06/17 and is aware for further monitoring for HTN and proteinuria. Patient will return to ED with any additional chest pain or other concerns Deepak Harris MD, R3 Jun 12, 2017 15:58
--- NOTE | 2017-06-13 00:39 | EKG ---
Date Performed: 06/12/2017 Time Performed: 16:20:26 PTAGE: 27 years EKG: Sinus rhythm Extensive ST-T changes are abnormal Abnormal ECG PREVIOUS TRACING : 06/12/2017 03.23 Since the prior tracing, there has been no significant landa DOCTOR: Rolf De La Garza Interpretating Date/Time 06/13/2017 00:39:16
[2017-06-13] MEDS ORDERED: INFLUENZA VIRUS VACCINE (QUADRIVALENT) 0.5 ML SYR IM ONE (10:00)
== END 2017-06-12 18:00 | disposition home or self-care (01) ==
LOC: NEPE 14:40 → NEDA 19:01 → OBSVTOIN 19:30 → INTOOBSV 19:30 → HCIN 22:06
PROVIDERS: ADMIT Obstetrics & Gynecology; ATTEND Obstetrics & Gynecology
DX: O26.893 Other specified pregnancy related conditions, third trimester (principal); R07.9 Chest pain, unspecified; R10.9 Unspecified abdominal pain; R06.02 Shortness of breath; R61 Generalized hyperhidrosis; R51 Headache; R60.0 Localized edema; R11.2 Nausea with vomiting, unspecified; O16.4 Unspecified maternal hypertension, complicating childbirth; R00.1 Bradycardia, unspecified; R94.31 Abnormal electrocardiogram [ECG] [EKG]; Z3A.35 35 weeks gestation of pregnancy
CPT/HCPCS: 71045; 76816; 78580; 80048; 80053; 80307; 81001; 82550; 82552; 82570; 83690; 83735; 84156; 84484; 84550; 85025; 85610; 85730; 93005; 93306; 93970; 96360; 99285; A9540; G0378; G0481; J7030

== ENCOUNTER 2017-07-05 08:24 | Inpatient (IN) | payer MEDICAID ==
[~2017-07-05] VITALS: Ht 170.2 cm; Wt 91.2 kg
[2017-07-05] VITALS (10 sets, daily range): BP systolic 108–129; BP diastolic 56–71; PULSE 72–94; RESP 16–18; TEMP 97.6–98.4; O2SAT 100
[2017-07-05] MEDS ORDERED: LACTATED RINGER'S 1000 ML INJ 1,000 ML IV ONE ×2 (09:14→12:00)
--- NOTE | 2017-07-05 09:18 | HHI.HP ---
HPI Chief Complaint repeat Date Seen: Jul 05, 2017 Time Seen: 09:34 Travel History International Travel<30 Days: No Contact w/Intl Traveler<30Days: No History of Present Illness HPI Patient is 27-year-old presents for repeat . She had her repeat at 39 weeks previously. She sees [facility]. Doing well, denies any complaints. Previous done in [place] in 2012 Weeks Gestation: 39 Para: 1 : 4 : 2 History Past Medical History Medical History: Denies Significant Hx Obstetric History Obstetric History 1 in 2012: low transverse documented 2 early elective terminations Past Surgical History Narrative Surgical D&C x2 Family History Family History: Negative Social History Alcohol Use: No Tobacco Use: No Substance Abuse: No Allergies-Medications (Allergen,Severity, Reaction): Coded Allergies: No Known Allergies (Verified Adverse Reaction, Unknown, 07/05/17) Home Meds Active Scripts W/O Vit A W/ Fe Fumar (Citranatal [place]) 27-1-260 Mg Cap, 1 CAP PO DAILY for Nutritional Supplement, #30 CAP 10 Refills Prov:Jennifer Jackman 03/25/17 Review of Systems General / Constitutional: Weight Gain, No: Fever, Weight Loss, Chills, Other Eyes: No: Diploplia, Blurred Vision, Visual changes, Pain, Photophobia HENT: No: Headaches, Vertigo, Lightheadedness Cardiovascular: No: Irregular Rhythm, Chest Pain or Discomfort, Palpitations, Tachycardia, Syncope, Varicosities, Edema, Cyanosis Respiratory: No: Cough, Short of Breath, Other Gastrointestinal: No: Nausea, Vomiting, Diarrhea Genitourinary: No: Urgency, Frequency, Dysuria, Decreased Urinary Output, Oliguria, Pelvic Pain, Discharge, Menorrhagia, Vaginal Bleeding Musculoskeletal: No: Limited ROM, Weakness, Cramping, Edema, Pain Skin: No Rash, No Itching, No Dryness, No Lumps, No Change in Pigmentation, No Change in Nails, No Alopecia, No Lesions Neurologic: No: Weakness, Dizziness, Syncope, Focal Abnormalities, Coordination Problem, Headache, Slurred Speech, Seizures Psychiatric: No: Depression, Suicidal Ideations, Homicidal Ideation Endocrine: No: Heat Intolerance, Cold Intolerance, Polydipsia, Polyuria, Other Physical Exam Narrative GENERAL: Well-nourished, well-developed patient. SKIN: Warm and dry. HEAD: Normocephalic and atraumatic. EYES: No scleral icterus. No injection or drainage. ENT: No nasal drainage noted. Mucous membranes pink. Airway patent. NECK: Supple, trachea midline. No JVD. CARDIOVASCULAR: Regular rate and rhythm without murmurs, gallops, or rubs. RESPIRATORY: Breath sounds equal bilaterally. No accessory muscle use. ABDOMEN/GI: Abdomen soft, non-tender, bowel sounds present, no rebound, no guarding Gravid to 39 weeks size GENITOURINARY: External Genitalia: intact and normal in appearance BUS glands: [-] Cervix: [-] Dilatation: [-] Effacement: [-] Station: [-] Presentation: [-] Membranes: [intact or ruptured] Uterine Contractions: [-] FHT's: Category: [-] Baseline: [-] Reactive: [-] Variability: [-] Decels: [-] EXTREMITIES: No cyanosis or edema. BACK: Nontender without obvious deformity. No CVA tenderness. NEUROLOGICAL: Awake and alert. Motor and sensory grossly within normal limits. Five out of 5 muscle strength in all muscle groups. Normal speech. Caprini VTE Risk Assessment Caprini VTE Risk Assessment: No/Low Risk (score <= 1) Caprini Risk Assessment Model Point Value = 1 Point Value = 2 Point Value = 3 Point Value = 5 Age 41-60 Minor surgery BMI > 25 kg/m2 Swollen legs Varicose veins or History of unexplained or recurrent spontaneous Oral contraceptives or hormone replacement Sepsis (< 1 month) Serious lung disease, including pneumonia (< 1 month) Abnormal pulmonary function Acute myocardial infarction Congestive heart failure (< 1 month) History of inflammatory bowel disease Medical patient at bed rest Age 61-74 Arthroscopic surgery Major open surgery (> 45 min) Laparoscopic surgery (> 45 min) Malignancy Confined to bed (> 72 hours) Immobilizing plaster cast Central venous access Age >= 75 History of VTE Family history of VTE Factor V Leiden Prothrombin [id number] Lupus anticoagulant Anticardiolipin antibodies Elevated serum homocysteine Heparin-induced thrombocytopenia Other congenital or acquired thrombophilia Stroke (< 1 month) Elective arthroplasty Hip, pelvis, or leg fracture Acute spinal cord injury (< 1 month) Prophylaxis Regimen Total Risk Factor Score Risk Level Prophylaxis Regimen 0-1 Low Early ambulation 2 Moderate Order ONE of the following: *Sequential Compression Device (SCD) *Heparin 5000 units SQ BID 3-4 Higher Order ONE of the following medications: *Heparin 5000 units SQ TID *Enoxaparin/Lovenox 40 mg SQ daily (WT < 150 kg, CrCl > 30 mL/min) *Enoxaparin/Lovenox 30 mg SQ daily (WT < 150 kg, CrCl > 10-29 mL/min) *Enoxaparin/Lovenox 30 mg SQ BID (WT < 150 kg, CrCl > 30 mL/min) AND/OR *Sequential Compression Device (SCD) 5 or more Highest Order ONE of the following medications: *Heparin 5000 units SQ TID (Preferred with Epidurals) *Enoxaparin/Lovenox 40 mg SQ daily (WT < 150 kg, CrCl > 30 mL/min) *Enoxaparin/Lovenox 30 mg SQ daily (WT < 150 kg, CrCl > 10-29 mL/min) *Enoxaparin/Lovenox 30 mg SQ BID (WT < 150 kg, CrCl > 30 mL/min) AND *Sequential Compression Device (SCD) Data Data Vital Signs Reviewed: Yes Orders Orders Admit To Inpatient (07/05/17 ) Code Status (07/05/17 09:14) Vital Signs (Adult) .ON ADMISSION (07/05/17 09:14) Activity Oob Ad Farheen (07/05/17 09:14) Heart (07/05/17 09:14) Urinary Catheter Management AMINTA.Q8H (07/05/17 09:14) ^ Preps (07/05/17 09:14) Scd / Jonel / Foot Pump AMINTA.QSHIFT (07/05/17 09:14) ^ Ultrasound For Locatio (07/05/17 09:14) Diet Npo (07/05/17 Breakfast) Lactated Ringer's 1000 Ml Inj (Lr 1000 M (07/05/17 09:14) Lactated Ringer's 1000 Ml Inj (Lr 1000 M (07/05/17 09:44) Cefazolin 2 Gm Premix (Ancef 2 Gm Premix (07/05/17 10:15) Citric Acid-Sodium Citrate Liq (Bicitra (07/05/17 10:45) Type And Screen (07/05/17 09:14) Complete Blood Count With Diff (07/05/17 09:14) Urinalysis - C+S If Indicated (07/05/17 09:14) Drug Screen, Random Urine (07/05/17 09:14) Inpatient Certification (07/05/17 ) Specimen To Be Collected PRN (07/05/17 09:14) Specimen To Be Collected PRN (07/05/17 09:14) Assessment/Plan Assessment and Plan 27 y/o at 39 weeks here for repeat -Admit to L&D -Preop orders -Ancef for prophylactic abx -Plan for Rick Saunders MD Jul 05, 2017 09:18
[2017-07-05 09:27] LABS: AUTOMATED NEUTROPHIL # 6.5 TH/MM3 (1.8-7.7); BASOPHIL % 0.3 % (0.0-2.0); EOSINOPHIL % 0.4 % (0.0-4.0); HEMATOCRIT 37.3 % (35.0-46.0); HEMOGLOBIN 12.9 GM/DL (11.6-15.3); LYMPH % 28.7 % (9.0-44.0); MEAN CELL VOLUME 84.5 FL (80.0-100.0); MEAN CORPUSCULAR HEMOGLOBIN 29.1 PG (27.0-34.0); MEAN CORPUSCULAR HGB CONC 34.5 % (32.0-36.0); MEAN PLATELET VOLUME 7.3 FL (7.0-11.0); MONO % 7.9 % (0.0-8.0); MONOCYTE # 0.8 TH/MM3 (0-0.9); NEUT % 62.7 % (16.0-70.0); PLATELET COUNT 439 TH/MM3 (150-450); RED BLOOD COUNT 4.41 MIL/MM3 (4.00-5.30); RED CELL DISTRIBUTION WIDTH 12.6 % (11.6-17.2); WHITE BLOOD COUNT 10.3 TH/MM3 (4.0-11.0)
[2017-07-05 09:33] LABS: BACTERIA, URINE OCC /hpf; BILIRUBIN, URINE NEG (NEG); BLOOD, URINE SMALL (NEG); GLUCOSE,URINE NEG (NEG); KETONE, URINE NEG (NEG); MUCUS URINE FEW /lpf (OCC); NITRITE,URINE NEG (NEG); PH, URINE 5.5 (5.0-8.5); SQUAMOUS EPITHELIAL CELL URINE 1 /hpf (0-5); URINE COLOR YELLOW (YELLW/STRAW); URINE LEUKOCYTE ESTERASE NEG (NEG)
[2017-07-05] MEDS ORDERED: LACTATED RINGER'S 1000 ML INJ 1,000 ML IV SCH ×2 (09:44→16:58)
[2017-07-05] MEDS ORDERED: MORPHINE SULFATE PF 5 MG/10 ML VIAL ONE (10:03)
[2017-07-05] MEDS ORDERED: ACETAMINOPHEN 1000 MG/100 ML 100 ML IV ONE (10:04)
[2017-07-05] MEDS ORDERED: ceFAZolin 2 GM PREMIX 50 ML IV SCH (10:15)
[2017-07-05] MEDS ORDERED: CITRIC ACID-SODIUM CITRATE LIQ 30 ML UDC PO SCH (10:45)
[2017-07-05] MEDS ORDERED: ONDANSETRON HCL 4 MG/2 ML VIAL IV PUSH PRN (12:00)
[2017-07-05] MEDS ORDERED: PHENYLEPH/NS 1000 MCG/10 ML SYR IV ONE (12:00)
[2017-07-05] MEDS ORDERED: ACETAMINOPHEN 325 MG TAB PO PRN (12:00)
[2017-07-05] MEDS ORDERED: DEXAMETHASONE SOD PHOS 4 MG/ML VIAL IV ONE (12:00)
[2017-07-05] MEDS ORDERED: ePHEDrine/NS 25 MG/5 ML SYRINGE IV ONE (12:00)
[2017-07-05] MEDS ORDERED: SODIUM CHLORIDE 0.9% FLUSH 10 ML FLUSH IV FLUSH PRN (12:00)
[2017-07-05] MEDS ORDERED: KETOROLAC TROMETHAMINE 60 MG/2 ML (IM) VIAL IM PRN (12:00)
[2017-07-05] MEDS ORDERED: ONDANSETRON HCL 4 MG/2 ML VIAL IV ONE (12:00)
[2017-07-05] MEDS ORDERED: ZOLPIDEM TARTRATE 5 MG TAB PO PRN (12:00)
[2017-07-05] MEDS ORDERED: OXYTOCIN 10 UNIT/ML AMP IV ONE (12:00)
[2017-07-05] MEDS ORDERED: OXYTOCIN 30 UNITS-500ML PREMIX 500 ML IV ONE (12:00)
[2017-07-05] MEDS ORDERED: KETOROLAC TROMETHAMINE 60 MG/2 ML (IM) VIAL IM ONE (12:56)
[2017-07-05] MEDS: IBUPROFEN 600 MG TAB PO PRN (16:32)
[2017-07-05] MEDS: CEFAZOLIN INJ 2,000 MG in SODIUM CHLORIDE 0.9% INJ 100 ML IV SCH (17:49)
[2017-07-05] MEDS: SODIUM CHLORIDE 0.9% FLUSH 10 ML FLUSH IV FLUSH SCH (21:00)
[2017-07-05] MEDS ORDERED: OXYTOCIN 30 UNITS-500ML PREMIX 500 ML IV PRN (22:00)
[2017-07-06] MEDS: oxyCODONE/ACETAMINOPHEN 5 MG/325 MG TAB PO PRN ×5 (00:27→20:02)
[2017-07-06] MEDS: DOCUSATE SODIUM 50 MG/SENNA 8.6 MG TAB PO PRN (00:28)
[2017-07-06] MEDS: IBUPROFEN 600 MG TAB PO PRN ×3 (00:28→17:01)
[2017-07-06 00:30] VITALS: BP 108/59; PULSE 70; RESP 17; TEMP 97.9
[2017-07-06] MEDS: CEFAZOLIN INJ 2,000 MG in SODIUM CHLORIDE 0.9% INJ 100 ML IV SCH (02:13)
[2017-07-06 07:48] LABS: AUTOMATED NEUTROPHIL # 10.7 TH/MM3 (1.8-7.7); BASOPHIL # 0.1 TH/MM3 (0-0.2); BASOPHIL % 0.4 % (0.0-2.0); EOSINOPHIL % 0.3 % (0.0-4.0); HEMATOCRIT 28.5 % (35.0-46.0); HEMOGLOBIN 9.7 GM/DL (11.6-15.3); LYMPH % 19.4 % (9.0-44.0); LYMPHOCYTE # 2.9 TH/MM3 (1.0-4.8); MEAN CELL VOLUME 85.1 FL (80.0-100.0); MEAN CORPUSCULAR HGB CONC 34.1 % (32.0-36.0); MEAN PLATELET VOLUME 7.3 FL (7.0-11.0); MONO % 9.5 % (0.0-8.0); MONOCYTE # 1.4 TH/MM3 (0-0.9); NEUT % 70.4 % (16.0-70.0); PLATELET COUNT 348 TH/MM3 (150-450); RED BLOOD COUNT 3.34 MIL/MM3 (4.00-5.30); RED CELL DISTRIBUTION WIDTH 12.5 % (11.6-17.2); WHITE BLOOD COUNT 15.2 TH/MM3 (4.0-11.0)
--- NOTE | 2017-07-06 07:51 | HHI.OB ---
Subjective Post Operative Day: 1 Remarks doing well , AF ,VSS tolerating diet , ambulating + voiding no flatus yet ,bandage dry, baby doing well Objective Vitals/I&O Vital Signs Date Time Temp Pulse Resp B/P (MAP) Pulse Ox O2 Delivery O2 Flow Rate FiO2 07/05/17 20:10 76 18 108/60 (76) 07/05/17 20:10 98.2 07/05/17 20:10 100 07/05/17 13:50 97.8 100 07/05/17 13:50 72 16 129/64 (85) 07/05/17 13:05 77 18 113/66 (82) 100 07/05/17 12:50 74 18 113/65 (81) 07/05/17 12:50 100 07/05/17 12:35 97.6 07/05/17 12:35 72 113/60 (77) 07/05/17 12:35 18 100 07/05/17 12:20 75 18 100 07/05/17 12:20 112/56 (74) 07/05/17 12:05 83 18 108/63 (78) 07/05/17 12:05 97.6 100 07/05/17 09:59 98.4 07/05/17 08:45 18 07/05/17 08:43 94 128/71 (90) Result Diagram: 07/05/17 0900 Objective Remarks GENERAL: Well-nourished, well-developed patient. CARDIOVASCULAR: Regular rate and rhythm without murmurs, gallops, or rubs. RESPIRATORY: Breath sounds equal bilaterally. No accessory muscle use. ABDOMEN/GI: Abdomen soft, non-tender, bowel sounds present. Incision: Clean, dry and intact. Fundus: Firm, non-tender at umbilicus. GENITOURINARY: Light to moderate bleeding. EXTREMITIES: No cyanosis or edema, non-tender, without signs of DVT. Medications and IVs Current Medications Medications (Trade) Dose Ordered Sig/Lorenza Route Start Time Stop Time Status Last Admin Cefazolin Sodium/ Dextrose 50 ml @ 100 mls/hr POOL MANAGER IV 07/05/17 10:15 07/09/17 10:14 07/05/17 10:10 (Bicitra Liq) 30 ml POOL MANAGER PO 07/05/17 10:45 07/09/17 10:44 07/05/17 10:09 Lactated Ringer's 1,000 ml @ 100 mls/hr Q10H IV 07/05/17 16:58 07/06/17 12:57 07/05/17 21:39 Oxytocin 500 ml @ 100 mls/hr UNSCH X1 PRN IV 07/05/17 22:00 07/06/17 21:59 (NS Flush) 2 ml BID IV FLUSH 07/05/17 21:00 (NS Flush) 2 ml UNSCH PRN IV FLUSH 07/05/17 12:00 07/06/17 02:14 (Mylicon Chew) 80 mg QID PRN PO 07/05/17 12:00 (Tylenol) 650 mg Q6H PRN PO 07/05/17 12:00 (Motrin) 600 mg Q6H PRN PO 07/05/17 12:00 07/06/17 00:28 (Toradol Inj) 60 mg UNSCH X1 PRN IM 07/05/17 12:00 07/06/17 11:59 07/05/17 12:58 (Percocet 5-325 Mg) 1 tab Q4H PRN PO 07/05/17 12:00 07/06/17 05:07 (Percocet 5-325 Mg) 2 tab Q4H PRN PO 07/05/17 12:00 (Elvie-Colace) 2 tab Q12H PRN PO 07/05/17 12:00 07/06/17 00:28 (Ambien) 5 mg HS PRN PO 07/05/17 12:00 (M-M-R Ii Inj) 0.5 ml ONCE ONCE SQ 07/06/17 16:00 07/06/17 16:01 (Boostrix Inj) 0.5 ml ONCE ONCE IM 07/06/17 16:00 07/06/17 16:01 (Zofran Inj) 4 mg Q6H PRN IV PUSH 07/05/17 12:00 (Flu (Quadrivalent) Vaccine Inj) 0.5 ml ONCE ONCE IM 07/06/17 10:00 07/06/17 10:01 Assessment/Plan Assessment and Plan 27 y/o at 39 weeks underwent repeat without complication Plan postop advancement of diet and ambulation continue postop care , likely D./ C in am Mike Fernandez II, MD Jul 06, 2017 07:51
[2017-07-06 08:00] VITALS: BP 111/60; PULSE 73; RESP 18; TEMP 98.1; O2SAT 100
[2017-07-06] MEDS ORDERED: INFLUENZA VIRUS VACCINE (QUADRIVALENT) 0.5 ML SYR IM ONE (10:00)
[2017-07-06] MEDS ORDERED: MEASLES, MUMPS, RUBELLA VACCINE 0.5 ML VIAL SQ ONE (16:00)
[2017-07-06] MEDS ORDERED: DIPHTH/TETANUS/ACEL PERTUSSIS (BOOSTER) 0.5 ML VIAL/PFS IM ONE (16:00)
[2017-07-06] MEDS: SIMETHICONE 80 MG CHEWABLE TAB PO PRN (17:03)
[2017-07-06] MEDS: SODIUM CHLORIDE 0.9% FLUSH 10 ML FLUSH IV FLUSH SCH (19:15)
[2017-07-06 20:00] VITALS: BP 120/57; PULSE 67; RESP 18; TEMP 97.6
--- NOTE | 2017-07-06 22:20 | MP ---
cc: QUINN FERNANDEZ MD DATE OF SURGERY 07/05/17 PREOPERATIVE DIAGNOSIS Previous at 39 weeks for repeat section. POSTOPERATIVE DIAGNOSIS Previous at 39 weeks for repeat section. PROCEDURE PERFORMED Repeat low transverse section. SURGEON Sea Fernandez MD ANESTHESIA Spinal. PREOPERATIVE NOTE The patient is a 27-year-old black female G4, P1 previous x1 who wants repeat at 39 weeks for delivery. PROCEDURE IN DETAIL The patient was taken to the operative room, placed supine position on the operating table. After adequate spinal anesthesia was administered, she was prepped and draped for abdominal surgery. Previous Pfannenstiel incision was excised out and cast away. The incision carried to the fascia sharply until the fascia was dissected laterally and then off the rectus muscle. Peritoneal cavity entered sharply. The incision extended and superiorly inferiorly. The bladder placed behind the bladder blade and the visceral peritoneum reflected off the lower uterine segment, placed on the bladder blade. A transverse hysterotomy was made and extended bluntly bilaterally and a female was delivered at 11:17 a.m., Apgars 8 and 9, weight 3373 grams. There were no complications. Delayed cord clamping done. Cord blood obtained. Placenta exteriorized and the placenta manually extracted. The hysterotomy closed in running layer of 0 chromic followed by an imbricating suture of same. Hemostasis was achieved. The bladder reapproximated with running 2-0 Vicryl. The uterus was elevated, normal ovaries and tubes noted bilaterally. The blood suctioned from cul-de-sac and gutters. The uterus was replaced in the peritoneal cavity. The parietal peritoneum closed with running layer of 2-0 Vicryl. The rectus muscle was brought together with stick ties of chromic and Vicryl. Fascia was closed in a running layer of 0 Vicryl. Subcutaneous tissue was reapproximated with a running 3-0 plain catgut suture. The skin was closed with 3-0 Monocryl subcuticular stitch. Steri-Strips were placed on the wound and a pressure dressing applied. Estimated blood loss 500 ml. There were no complications. Sponge and needle count correct x2. The patient went to recovery in stable condition. MD FERMIN Solo/ /12:03 PM /10:11 PM
[2017-07-07] MEDS: DOCUSATE SODIUM 50 MG/SENNA 8.6 MG TAB PO PRN ×2 (00:01→13:18)
[2017-07-07] MEDS: oxyCODONE/ACETAMINOPHEN 5 MG/325 MG TAB PO PRN ×6 (00:01→21:39)
[2017-07-07] MEDS: IBUPROFEN 600 MG TAB PO PRN ×4 (00:01→21:39)
[2017-07-07] MEDS ORDERED: IBUP-232 PO (08:13)
[2017-07-07] MEDS ORDERED: OXYC1TAB63 PO (08:13)
[2017-07-07] MEDS: SIMETHICONE 80 MG CHEWABLE TAB PO PRN (08:19)
--- NOTE | 2017-07-07 08:43 | HHI.OB ---
Subjective Post Operative Day: 2 Remarks Patient is a 27-year-old delivered at 39/1 . Patient is post-op day 2after repeat c/s. Patient complaining of moderate incisional pain, rate 6/10. Patient reports eating and drinking without any nausea or vomiting. Patient reports minimal bleeding. Patient has passed gas but no bowel movements. Patient is walking without lower extremity pain or shortness of breath. Patient reports desire for contraception and breast-feeding. Denies fever, chill, or urinary sxs. Objective Vitals/I&O Vital Signs Date Time Temp Pulse Resp B/P (MAP) Pulse Ox O2 Delivery O2 Flow Rate FiO2 07/06/17 20:00 97.6 67 18 120/57 (78) Result Diagram: 07/06/17 0730 Objective Remarks GENERAL: Well-nourished, well-developed patient. CARDIOVASCULAR: Normal S1 and S2, without murmurs, gallops, or rubs. RESPIRATORY: Breath sounds equal bilaterally. No accessory muscle use. ABDOMEN/GI: Abdomen soft, non-tender, bowel sounds present. Incision: Clean, dry and intact. Fundus: Firm, non-tender at umbilicus. GENITOURINARY: Light to moderate bleeding. EXTREMITIES: No cyanosis or edema, non-tender, without signs of DVT. Medications and IVs Current Medications Medications (Trade) Dose Ordered Sig/Lorenza Route Start Time Stop Time Status Last Admin Cefazolin Sodium/ Dextrose 50 ml @ 100 mls/hr TRIMMER MACHINE IV 07/05/17 10:15 07/09/17 10:14 07/05/17 10:10 (Bicitra Liq) 30 ml TRIMMER MACHINE PO 07/05/17 10:45 07/09/17 10:44 07/05/17 10:09 (NS Flush) 2 ml BID IV FLUSH 07/05/17 21:00 (NS Flush) 2 ml UNSCH PRN IV FLUSH 07/05/17 12:00 07/06/17 02:14 (Mylicon Chew) 80 mg QID PRN PO 07/05/17 12:00 07/07/17 08:19 (Tylenol) 650 mg Q6H PRN PO 07/05/17 12:00 (Motrin) 600 mg Q6H PRN PO 07/05/17 12:00 07/07/17 08:19 (Percocet 5-325 Mg) 1 tab Q4H PRN PO 07/05/17 12:00 07/06/17 15:25 (Percocet 5-325 Mg) 2 tab Q4H PRN PO 07/05/17 12:00 07/07/17 08:19 (Elvie-Colace) 2 tab Q12H PRN PO 07/05/17 12:00 07/07/17 00:01 (Ambien) 5 mg HS PRN PO 07/05/17 12:00 (Zofran Inj) 4 mg Q6H PRN IV PUSH 07/05/17 12:00 Assessment/Plan Problem List: (1) delivery delivered ICD Codes: O82 - Encounter for delivery without indication Plan: Patient is a 27-year-old delivered at 39/1 .Patient is day2 after repeat c/s. Patient was counseled to make 1 wk f/u appointment for incisional chk and 6 weeks of pelvic rest. --AF VSS --Continue routine care --Motrin and Percocet when necessary for pain --Encourage OOB --Pelvic rest for 6 weeks will need follow-up appointment at that time. --Contraception: pt interested in Nexplanon for control --Anticipate discharge tomorrow Assessment and Plan 27 y/o at 39 weeks underwent repeat without complication Plan postop advancement of diet and ambulation continue postop care. Mychal Mckinnon MD, R1 Jul 07, 2017 08:43
[2017-07-07 11:00] VITALS: BP 120/59; PULSE 74; RESP 18; TEMP 98.2
[2017-07-07] MEDS: SODIUM CHLORIDE 0.9% FLUSH 10 ML FLUSH IV FLUSH SCH (18:52)
[2017-07-07 22:00] VITALS: BP 125/65; PULSE 85; RESP 18; TEMP 98.5
[2017-07-08] MEDS: oxyCODONE/ACETAMINOPHEN 5 MG/325 MG TAB PO PRN ×3 (01:42→09:54)
[2017-07-08] MEDS: IBUPROFEN 600 MG TAB PO PRN (05:50)
--- NOTE | 2017-07-08 07:06 | HHI.DCPOC ---
Discharge Care Plan Diagnosis: (1) delivery delivered Report Symptoms to Your Doctor -Temperature above 100.5 degrees -Redness, of incision or excessive or foul smelling drainage -Unusual pain or calf pain -Increased vaginal bleeding -Painful or difficulty urinating -Feelings of extreme sadness or anxiety after 2 weeks Goals to Promote Your Health * To prevent worsening of your condition and complications * To maintain your health at the optimal level Directions to Meet Your Goals Take your medications as prescribed Follow your dietary instruction Follow activity as directed Ensure plenty of rest for recovery Drink fluids for hydration Keep your appointments as scheduled Take your immunizations and boosters as scheduled If your symptoms worsen call your PCP, if no PCP go to Urgent Care Center or Emergency Room Smoking is Dangerous to Your Health. Avoid second hand smoke Call the 24-hour crisis hotline for domestic abuse at Martínez Mujica MD R2 Jul 08, 2017 07:06
--- NOTE | 2017-07-08 07:11 | HHI.OB ---
Subjective Post Operative Day: 3 Remarks Pt seen and examined this morning. Postoperative day # 3 AFVSS overnight. Incision not draining. Decreased lochia. Denies dysuria. No breast tenderness. She is feeding the baby via breast. Appetite good. No nausea or vomiting. Patient has had a bowel movement and continues to pass bowel gas. Ambulating well. Denies calf pain or shortness of breath. Otherwise, she is doing well this morning and has no other concerns. Objective Vitals/I&O Vital Signs Date Time Temp Pulse Resp B/P (MAP) Pulse Ox O2 Delivery O2 Flow Rate FiO2 07/07/17 22:00 98.5 85 18 125/65 (85) 07/07/17 11:00 98.2 74 18 120/59 (79) Result Diagram: 07/06/17 0730 Objective Remarks GENERAL: Well-nourished, well-developed patient. CARDIOVASCULAR: Normal S1 and S2, without murmurs, gallops, or rubs. RESPIRATORY: Breath sounds equal bilaterally. No accessory muscle use. ABDOMEN/GI: Abdomen soft, non-tender, bowel sounds present. Incision: Clean, dry and intact. Fundus: Firm, non-tender at umbilicus. GENITOURINARY: Light to moderate bleeding. EXTREMITIES: No cyanosis or edema, non-tender, without signs of DVT. Medications and IVs Current Medications Medications (Trade) Dose Ordered Sig/Lorenza Route Start Time Stop Time Status Last Admin Cefazolin Sodium/ Dextrose 50 ml @ 100 mls/hr RN HEMO DIALYSIS IV 07/05/17 10:15 07/09/17 10:14 07/05/17 10:10 (Bicitra Liq) 30 ml RN HEMO DIALYSIS PO 07/05/17 10:45 07/09/17 10:44 07/05/17 10:09 (NS Flush) 2 ml BID IV FLUSH 07/05/17 21:00 (NS Flush) 2 ml UNSCH PRN IV FLUSH 07/05/17 12:00 07/06/17 02:14 (Mylicon Chew) 80 mg QID PRN PO 07/05/17 12:00 07/07/17 08:19 (Tylenol) 650 mg Q6H PRN PO 07/05/17 12:00 (Motrin) 600 mg Q6H PRN PO 2/16/18 12:00 07/08/17 05:50 (Percocet 5-325 Mg) 1 tab Q4H PRN PO 07/05/17 12:00 07/07/17 13:19 (Percocet 5-325 Mg) 2 tab Q4H PRN PO 07/05/17 12:00 07/08/17 05:50 (Elvie-Colace) 2 tab Q12H PRN PO 07/05/17 12:00 07/07/17 13:18 (Ambien) 5 mg HS PRN PO 07/05/17 12:00 (Zofran Inj) 4 mg Q6H PRN IV PUSH 07/05/17 12:00 Assessment/Plan Problem List: (1) delivery delivered ICD Codes: O82 - Encounter for delivery without indication Status: Acute Plan: Patient is a 27-year-old delivered at 39/1. Patient is day 3 after repeat c/s. Patient was counseled to make 1 wk f/u appointment for incisional chk and 6 weeks of pelvic rest. --AF VSS --Continue routine care --Motrin and Percocet when necessary for pain --Encourage OOB --Pelvic rest for 6 weeks will need follow-up appointment at that time. Patient to have 1 week incision check with OBGYN. --Contraception: pt interested in Nexplanon for control --Anticipate discharge today Assessment and Plan 27 y/o at 39 weeks underwent repeat without complication Plan postop advancement of diet and ambulation continue postop care. Discharge Planning Today Martínez Mujica MD R2 Jul 08, 2017 07:11
[2017-07-08 08:00] VITALS: BP 119/64; PULSE 68; RESP 18; TEMP 98.2
== END 2017-07-08 13:26 | disposition home or self-care (01) | DRG 766 ==
LOC: H2EB 08:24 → H1EA 14:23
PROVIDERS: ADMIT Obstetrics & Gynecology Maternal & Fetal Medicine; ATTEND Obstetrics & Gynecology Maternal & Fetal Medicine
PROC: 10D00Z1 Extraction of Products of Conception, Low, Open Approach (ICD-10-PCS; principal; 2017-07-05)
DX: O34.211 Maternal care for low transverse scar from previous cesarean delivery (principal); Z37.0 Single live birth; Z3A.39 39 weeks gestation of pregnancy; Z23 Encounter for immunization
CPT/HCPCS: 80307; 81001; 85025; 86850; 86900; 86901; 90686; 90715; J0131; J0690; J1100; J1885; J2274; J2370; J2405; J2590; J7120; Q2038